=== PATIENT | female | born 1960 | race Caucasian/White ===

== ENCOUNTER → 2017-09-11 | Outpatient (CLI) | payer BC ==
[~2017-09-11] MED LIST: METHOCARBAMOL500 MG PO; NO HOME MEDICATIONS; PERCOCET 325 MG1 TA2 PO
== END ==
LOC: MC.RAD 08:40
DX: Z12.31 Encounter for screening mammogram for malignant neoplasm of breast (principal)

== ENCOUNTER → 2018-09-14 | Outpatient (CLI) | payer BC | LOC: MC.RAD 09:14 | DX: Z12.31 Encounter for screening mammogram for malignant neoplasm of breast (principal); Z01.419 Encounter for gynecological examination (general) (routine) without abnormal findings ==

== ENCOUNTER → 2018-10-29 | Outpatient (CLI) | payer BC | LOC: COL.RAD 10:13 | DX: D25.9 Leiomyoma of uterus, unspecified (principal) ==

== ENCOUNTER 2019-09-01 07:42 | Day surgery (SDC) | payer BC ==
[~2019-09-01] VITALS: Ht 162.6 cm; Wt 62.5 kg
[2019-09-01 08:15] VITALS: BP 135/69; PULSE 74; TEMP 98.2
[2019-09-01] MEDS ORDERED: PROTONIX 40MG T40 MG PO (09:41)
[2019-09-01] MEDS ORDERED: PROZAC 10MG10 MG PO (09:41)
[2019-09-01] MEDS ORDERED: VIENVA-28 TABL1 EACH PO (09:42)
[2019-09-01 09:50] VITALS: BP 125/60; PULSE 87; TEMP 97.8
--- NOTE | 2019-09-01 09:50 | NUR ---
The patient arrived back to [facility] from the endoscopy suite at this time. The patient appears drowsy but arouses easily to her name. The patient ambulated from the cart to the recliner in her room with the stand by assistance of two nurses and appeared to tolerate the activity well. Post procedure vital signs were started at this time. Will continue to monitor the patient.
[2019-09-01 10:05] VITALS: BP 124/56; PULSE 76
--- NOTE | 2019-09-01 10:05 | NUR ---
The patient appears more alert and agrees to try some water at this time. The patient's family remains at her bedside at this time. Will continue to monitor the patient.
--- NOTE | 2019-09-01 10:10 | NUR ---
Dr. Giordano is at the patient's bedside talking with her and her family about the findings of the procedure.
[2019-09-01 10:20] VITALS: BP 123/66; PULSE 71
--- NOTE | 2019-09-01 10:22 | NUR ---
Discharge instructions were reviewed with the patient and her daughter at this time. They both verbalized understanding and have no questions for the nurse at this time. The patient's IV to her right forearm was removed and a pressure dressing was applied to the site. The nurse instructed the patient to get dressed and notify the staff when she is ready to escorted out.
--- NOTE | 2019-09-01 10:30 | NUR ---
The patient was escorted out via wheelchair to a private vehicle by ADITYA Silverman. The patient's belongings and discharge paperwork were sent with her. The patient's daughter is present to drive her home.
== END 2019-09-01 10:30 | disposition home or self-care (01) ==
LOC: SDCO 07:42
DX: K21.9 Gastro-esophageal reflux disease without esophagitis (principal); K63.89 Other specified diseases of intestine; Z90.49 Acquired absence of other specified parts of digestive tract
CPT/HCPCS: J2250; J3010; J7030

== ENCOUNTER → 2019-09-21 | Outpatient (CLI) | payer BC ==
[~2019-09-21] MED LIST changes: +PROTONIX 40MG T40 MG PO; +PROZAC 10MG10 MG PO; +VIENVA-28 TABL1 EACH PO
== END ==
LOC: MC.RAD 08:31
DX: Z12.31 Encounter for screening mammogram for malignant neoplasm of breast (principal)

== ENCOUNTER → 2020-10-17 | Outpatient (CLI) | payer BC | LOC: MC.RAD 09-22 08:30 | DX: Z12.31 Encounter for screening mammogram for malignant neoplasm of breast (principal); Z01.419 Encounter for gynecological examination (general) (routine) without abnormal findings ==

== ENCOUNTER → 2021-10-30 | Outpatient (CLI) | payer BC | LOC: MC.RAD 12:47 | DX: Z12.31 Encounter for screening mammogram for malignant neoplasm of breast (principal) ==

== ENCOUNTER → 2022-10-31 | Outpatient (CLI) | payer BC | LOC: MC.RAD 14:28 | DX: Z12.31 Encounter for screening mammogram for malignant neoplasm of breast (principal) ==

== ENCOUNTER → 2023-11-03 | Outpatient (CLI) | payer BC | LOC: MC.RAD 13:21 | DX: Z12.31 Encounter for screening mammogram for malignant neoplasm of breast (principal) ==